=== PATIENT | female | born 1975 | race Caucasian/White ===

== ENCOUNTER 2016-12-07 20:02 | Emergency (ER) | payer OTHER ==
[2016-12-07] MEDS ORDERED: Cephalexin CAP* 500 MG PO ONE (21:31)
[2016-12-07] MEDS ORDERED: Cephalexin CAP* 500 MG ONE (21:37)
--- NOTE | 2016-12-07 22:03 | RAD ---
HISTORY: Swollen olecranon bursa COMPARISONS: None VIEWS: 4, Frontal, lateral, and oblique views of the left elbow FINDINGS: BONE DENSITY: Normal. BONES: There is no displaced fracture. JOINTS: There is no arthropathy. ALIGNMENT: There is no dislocation. SOFT TISSUES: There is soft tissue swelling over the olecranon OTHER FINDINGS: None. IMPRESSION: SOFT TISSUE SWELLING OVER THE OLECRANON CONSISTENT WITH HISTORY OF OLECRANON BURSITIS
[2016-12-07 22:24] VITALS: BP 110/68
--- NOTE | 2016-12-08 01:19 | UC ---
ayesha Mcconnell Timothy, scribed for Araceli Santoyo MD on 12/07/16 at 2124 . Upper Extremity HPI - HPI Summary HPI Summary: Robb Hamilton is a 41 yo female presenting with shooting 7/10 left elbow pain radiating down her left arm since 1600 this afternoon, accompanied by swelling. Pt states she has a Hx of similar Sx which resolved spontaneously. She denies any trauma. Present in room is her son, Kennedy. Pt is right handed. She has self- medicated with 800mg ibuprofen at 1900 tonight. Her MHx includes , thyroidectomy 2004. - History of Current Complaint Chief Complaint: UCUpperExtremity Stated Complaint: ELBOW PAIN,SWELLING Time Seen by Provider: 12/07/16 21:18 Hx Obtained From: Patient Hx Last Menstrual Period: depo ?: No Onset/Duration: Sudden Onset, Lasting Hours, Still Present Severity Initially: Moderate Severity Currently: Moderate Pain Intensity: 7 Pain Scale Used: 0-10 Numeric Location Of Pain: Is Discrete @ - left elbow, Radiates To - down left arm to hand Character: Sharp - "shooting" Aggravating Factor(s): Movement Alleviating Factor(s): Nothing Associated Signs And Symptoms: Positive: Swelling, Redness. Negative: Bruising , Fever, Weakness, Numbness/Tingling Related History: Dominant Hand Right - Allergies/Home Medications Allergies/Adverse Reactions: Allergies Allergy/AdvReac Type Severity Reaction Status Date / Time Promethazine [From Phenergan] Allergy Itching Verified 12/07/16 20:44 PMH/Surg Hx/FS Hx/Imm Hx Endocrine History Of: Reports: Thyroid Disease - 2004 Thyroidectomy Denies: Diabetes Cardiovascular History Of: Denies: Cardiac Disorders, Hypertension Respiratory History Of: Denies: COPD, Asthma GI/ History Of: Denies: Ulcer - Surgical History Surgical History: Yes Surgery Procedure, Year, and Place: 2004 Thyroidectomy - Family History Known Family History: Positive: Other - [place] Negative: Cardiac Disease - Social History Lives: With Family Alcohol Use: None Substance Use Type: None Smoking Status (MU): Never Smoked Tobacco - Immunization History Most Recent Influenza Vaccination: 2013 Most Recent Tetanus Shot: 2011 Most Recent Pneumonia Vaccination: n/a Review of Systems Constitutional: Negative Skin: Negative Eyes: Negative ENT: Negative Respiratory: Negative Cardiovascular: Negative Gastrointestinal: Negative Genitourinary: Negative Motor: Negative Neurovascular: Negative Musculoskeletal: Edema - left elbow, Other: - shooting pain from left elbow down arm Neurological: Negative Psychological: Negative All Other Systems Reviewed And Are Negative: Yes Physical Exam Triage Information Reviewed: Yes Appearance: Well-Appearing, Well-Nourished, Pain Distress Vital Signs: Initial Vital Signs Temp 100.0 F 12/07/16 20:39 Pulse 76 12/07/16 20:39 Resp 18 12/07/16 20:39 BP 107/65 12/07/16 20:39 Pulse Ox 100 12/07/16 20:39 afebrile, but temporal temp 100.0 Vital Signs Reviewed: Yes Eyes: Positive: Conjunctiva Clear. Negative: Discharge ENT: Positive: Hearing grossly normal. Negative: Muffled/hoarse voice Neck: Positive: Supple, Nontender Respiratory: Positive: Lungs clear, Normal breath sounds, No respiratory distress Cardiovascular: Positive: RRR, No Murmur, Pulses Normal, Brisk Capillary Refill Musculoskeletal: Positive: Strength Intact, ROM Limited @ - limited to 160 degrees extension, pain with extension, full flexion and no pain with flexion, Edema @ - swelling, redness at left olecranon, no bony tenderness Neurological: Positive: Alert, Muscle Tone Normal Psychological Exam: Normal Psychological: Positive: Age Appropriate Behavior Skin Exam: Normal Skin: Negative: rashes Diagnostics - Radiology L Elbow XR Xray Interpretation: Positive (See Comments) - IMPRESSION: SOFT TISSUE SWELLING OVER THE OLECRANON CONSISTENT WITH HISTORY OF OLECRANON BURSITIS Radiology Interpretation Completed By: Radiologist Re-Evaluation - Re-Evaluation First Eval Re-Evaluation Time: 22:12 Change: Unchanged Comment: Pt is informed of results of imaging study. Discussed follow up with Dr. Camacho with Pt. Upper Extremity Course/Dx - Course Course Of Treatment: Robb Hamilton is a 41 yo female presenting to [facility] with shooting left elbow pain radiating down her arm since 1600 this afternoon. She denies any trauma. Her medications have been reviewed this visit. Of note is her temp in room at 100.0 degrees fahrenheit. Pt declines narcotics, and states she will manage fever and pain with ibuprofen at home. Pt received Keflex as an antibiotic to cover for possible septic arthritis. Her left elbow XR suggested soft tissue swelling over the olecranon, consistent with a Hx of olecranon bursitis. After clinical examination and review of her imaging studies, she will be discharged home with left olecranon bursitis with appropriate instructions for close follow up with orthopedics. Pt will receive an cristopher bandage wrap and a sling. - Differential Dx/Diagnosis Differential Diagnosis/HQI/PQRI: Bursitis - olecranon, Fracture (Closed), Septic Arthritis Provider Diagnoses: left olecranon bursitis Discharge - Discharge Plan Condition: Stable Disposition: HOME Prescriptions: Cephalexin CAP* [Keflex 500 CAP*] 500 mg PO QID #40 cap Patient Education Materials: Elbow Bursitis (ED) Referrals: Kodak Camacho MD [Medical Doctor] - 2 Days [facility] [Outside] - 1 Week Additional Instructions: Please follow up with Dr. Camacho, the orthopedist, and the primary care physician provided regarding your visit to urgent care today. When you call, tell Dr. Camacho that Dr. Santoyo is concerned for olecranon bursitis or septic arthritis of your elbow. Return to urgent care or the emergency department with any new or recurring symptoms. The documentation as recorded by the ayesha de la o Timothy accurately reflects the service I personally performed and the decisions made by , Araceli Santoyo MD.
== END 2016-12-07 22:24 | disposition home or self-care (01) ==
LOC: UCEAST 20:02
DX: M70.22 Olecranon bursitis, left elbow (principal)
CPT/HCPCS: 99212; A9270-GY; G0463

== ENCOUNTER 2018-01-17 07:25 | Emergency (ER) | payer OTHER ==
[2018-01-17] MEDS ORDERED: oxyCODONE/Acetamin 5/325 MG* TAB PO ONE (07:58)
[2018-01-17] MEDS ORDERED: predniSONE TAB* 20 MG PO ONE (07:58)
[2018-01-17] MEDS ORDERED: Ketorolac INJ* 60 MG/2 ML VIAL IM ONE (07:58)
[2018-01-17] MEDS ORDERED: Lidocaine PATCH 5%* 1 PATCH TRANSDERM ONE (09:53)
[2018-01-17 10:56] VITALS: BP 119/71
--- NOTE | 2018-01-17 18:52 | ED ---
Hsusain Mcconnell Angela, scribed for Mundo Daugherty MD on 01/17/18 at 0751 . Back Pain - HPI Summary HPI Summary: This pt is a 42 y/o female presenting to [facility] c/o low back pain since last night. Pt reports she was coming down the stairs and when she got to the bottom she had sudden onset of low back pain. She notes her "legs just gave out" and dropped on her left knee and on her left side. Denies hitting her back. Denies head strike or LOC. Pt reports she does not have the strength to move her legs. Pt states her low back pain radiates down both legs equally. Pt has been laying in bed since last night. She took Aleve last night with no relief. Her pain is alleviated with rest and is aggravated with movement. Denies urinary or bowel incontinence, abd pain, fever, chills. Pt currently rates her pain 8 out of 10 in severity. Denies any back surgeries. Denies drug use. Pt had epidural approximately 4 years ago. PMHx includes L5-S1 degenerative disc disease. Pt had a back MRI last week at [facility] which showed worsening degenerative disc disease in the past 6 months. She also had a kidneys can 2 weeks ago for trace blood in urine, which resulted normal. She is currently on Levothyroxine for thyroid disease, gabapentin (prescribed by her PCP), vitamin D supplements. Pt has been taking Gabapentin for 1 month now. - History of Current Complaint Chief Complaint: EDBackInjuryPain Stated Complaint: BACK PAIN Hx Obtained From: Patient Hx Last Menstrual Period: depo Onset/Duration: Lasting Hours, Still Present Onset/Duration: Started Hours Ago, Still Present Timing: Lasting Hours Back Pain Location: Is Discrete @ - low back pain, Radiates To - bilateral legs Severity Currently: Severe Pain Intensity: 8 Pain Scale Used: 0-10 Numeric Aggravating Symptom(s): Movement Alleviating Symptom(s): Rest Associated Signs And Symptoms: Positive: Weakness. Negative: Fever, Numbness, Tingling, Abdominal Pain, Bladder Incontinence, Bowel Incontinence - Allergies/Home Medications Allergies/Adverse Reactions: Allergies Allergy/AdvReac Type Severity Reaction Status Date / Time promethazine Allergy See Comment Verified 01/17/18 07:34 Home Medications: Home Medications Gabapentin CAP(*) [Neurontin 100 mg CAP(*)] 100 mg PO TID 01/17/18 [History Confirmed 01/17/18] Levothyroxine TAB* [Synthroid TAB*] 88 mcg PO DAILY 01/17/18 [History Confirmed 01/17/18] PMH/Surg Hx/FS Hx/Imm Hx Endocrine/Hematology History: Reports: Hx Thyroid Disease - 2004 Thyroidectomy Denies: Hx Diabetes Cardiovascular History: Denies: Hx Hypertension Respiratory History: Denies: Hx Asthma, Hx Chronic Obstructive Pulmonary Disease (COPD) GI History: Denies: Hx Cirrhosis, Hx Ulcer Musculoskeletal History: Denies: Hx Scoliosis Neurological History: Denies: Other Neuro Impairments/Disorders - Surgical History Surgery Procedure, Year, and Place: 2004 Thyroidectomy Infectious Disease History: No Infectious Disease History: Denies: Hx Hepatitis, Hx Human Immunodeficiency Virus (HIV), Traveled Outside the [place] in Last 30 Days - Family History Known Family History: Positive: Other - [place] Negative: Cardiac Disease - Social History Alcohol Use: None Substance Use Type: Reports: None Smoking Status (MU): Never Smoked Tobacco Review of Systems Negative: Fever, Chills Negative: Erythema Negative: Sore Throat Negative: Chest Pain Negative: Shortness Of Breath, Cough Negative: Abdominal Pain, Vomiting, Nausea Negative: dysuria, hematuria, incontinence - urinary or bowel Musculoskeletal: Other - back pain Negative: Myalgia, Edema Negative: Rash Neurological: Other - NEG: dizziness Positive: Weakness - in bilateral LE All Other Systems Reviewed And Are Negative: Yes Physical Exam - Summary Physical Exam Summary: Exam is limited by pain. Constitutional: Well-developed, Well-nourished, Alert. (-) Distressed Skin: Warm, Dry HENT: Normocephalic; Atraumatic Eyes: Conjunctiva normal Neck: Musculoskeletal ROM normal neck. (-) JVD, (-) Stridor, (-) Tracheal deviation Cardio: Rhythm regular, rate normal, Heart sounds normal; Intact distal pulses; The pedal pulses are 2+ and symmetric. Radial pulses are 2+ and symmetric. (-) Murmur Pulmonary/Chest wall: Effort normal. (-) Respiratory distress, (-) Wheezes, (-) Rales Abd: Soft, (-) Tenderness, (-) Distension, (-) Guarding, (-) Rebound Musculoskeletal: (-) Edema. Lower extremity movement strength is symmetric. Lymph: (-) Cervical adenopathy Neuro: Alert, Oriented x3. Distal sensation is intact. Patellar tendon and Achilles tendon reflex is 2+ bilaterally. Psych: Mood and affect Normal Triage Information Reviewed: Yes Vital Signs On Initial Exam: Initial Vitals Temp Pulse Resp BP Pulse Ox 97.7 F 77 17 120/62 98 01/17/18 07:29 01/17/18 07:29 01/17/18 07:29 01/17/18 07:29 01/17/18 07:29 Vital Signs Reviewed: Yes Diagnostics - Vital Signs Vital Signs Temp Pulse Resp BP Pulse Ox 01/17/18 07:29 97.7 F 77 17 120/62 98 - Laboratory Lab Statement: Any lab studies that have been ordered have been reviewed, and results considered in the medical decision making process. - Additional Comments Diagnostic Additional Comments: MRI Lumbar Spine (from [facility]) Findings: For counting purposes, the lower most segmented vertebral body is considered L5. The conus medullaris terminates at the L1 level and appears grossly normal. At T11-12 intervertebral levels are imaged in the sagittal plane only and appear grossly unremarkable. The L2-L3, L3-L4, and L4-L5 levels appear grossly unremarkable. At the L5-S1 level, there is moderate disc space narrowing with grade 1 retrolisthesis of L5 on S1 and mild facet osteoarthropathy. There is mild right- sided and moderate left -sided neural foraminal narrowing without definite nerve root impingement. IMPRESSION: Minor degenerative changes are seen at the L5-S1 level. Dr. Daugherty has reviewed this radiology report. Re-Evaluation - Re-Evaluation First Eval Re-Evaluation Time: 09:50 Change: Improved Comment: Pt is feeling better. Her pain is now down to a 6 out of 10 in severity. Second Eval Re-Evaluation Time: 10:32 Comment: Pt will be discharged home with follow up from Dr. Adler. Back Pain Course/Dx - Course Assessment/Plan: Pt is a 42 y/o female, with hx of degenerative disc disease, who presents with low back pain since last night. Pt reports she was coming down the stairs and when she got to the bottom she had sudden onset of low back pain. She notes her "legs just gave out" and dropped on her left knee and on her left side. Denies hitting her back. Denies head strike or LOC. Pt reports she does not have the strength to move her legs. Pt states her low back pain radiates down both legs equally. In the ED course the pt was given Toradol, Percocet, prednisone, lidocaine patch. MRI of the lumbar spine records were obtained from [facility]. MRI shows minor degenerative changes are seen at the L5-S1 level. Pt will be discharged home with follow up from Dr. Adler, neurosurgeon, in 2-3 days. She was given prescriptions for lidocaine patch, naproxen, Percocet, and prednisone. Pt was given instructions to return to the ED for any worsening symptoms. - Diagnoses Provider Diagnoses: Degenerative disc disease, Low back pain Discharge - Sign-Out/Discharge Documenting (check all that apply): Discharge/Admit/Transfer - Discharge - Discharge Plan Condition: Stable Disposition: HOME Prescriptions: Lidocaine PATCH 5%* [Lidoderm 5% Patch*] 1 patch TRANSDERM DAILY #30 patch Naproxen TAB* [Naprosyn 250 mg TAB*] 500 mg PO Q8H PRN #30 tab PRN Reason: Pain - Moderate To Severe oxyCODONE/Acetam5/325MG PREPAK [Percocet 5/325 TAB*] 1 - 2 tab PO Q6H #20 tab MDD 8 predniSONE TAB* [Deltasone TAB*] 50 mg PO DAILY #4 tab Patient Education Materials: Acute Low Back Pain (ED), Degenerative Disc Disease (ED) Forms: *Work Release Referrals: [facility] [Outside] Natalee Elizabeth [Primary Care Provider] - Chas Adler MD [Medical Doctor] - 2 Days (in 2-3 days.) Additional Instructions: Follow up with Dr. Adler, neurosurgeon, in 2-3 days. Establish a primary care provider through [facility] and follow up. RETURN TO THE EMERGENCY DEPARTMENT FOR CHANGING OR WORSENING SYMPTOMS. The documentation as recorded by the Hussain de la o Angela accurately reflects the service I personally performed and the decisions made by Dat matt Jerry, MD.
[2018-01-17] MEDS ORDERED: Lidocaine Patch REMOVE* 1 NOTE MISC SCH (21:00)
== END 2018-01-17 10:54 | disposition home or self-care (01) ==
LOC: ED 07:25
DX: M54.5 Low back pain (principal); M51.37 Other intervertebral disc degeneration, lumbosacral region; M62.81 Muscle weakness (generalized); E07.9 Disorder of thyroid, unspecified; Z80.9 Family history of malignant neoplasm, unspecified
CPT/HCPCS: 96372; 99283; A9270-GY; J1885; J7512

== ENCOUNTER 2018-03-15 08:02 | Emergency (ER) | payer OTHER ==
--- NOTE | 2018-03-15 08:18 | UC ---
General HPI - HPI Summary HPI Summary: c/o mid chest pain that started approx 0730 this morning. She states that the pain radiates up her R side of neck and jaw. Describes the pain as pressure and intermittent. Denies any hx of this pain in the past. Ms. Hamilton has just dropped off children, and was on her way to work, when pain started. Max 8/10. Without sob perse. Might be worse with deep inspiration, but not resolved without inspiration. Some nausea, no vomit. Pain mid right sternal, radiates to R jaw. No recent illness, no cough, no recent fever / chills. No h/a. No loc. No focal weakness. Takes depoprovera, lmp 2 yrs ago. - History of Current Complaint Chief Complaint: UCChestPain Stated Complaint: CHEST/JAW PAIN Time Seen by Provider: 03/15/18 08:04 Hx Obtained From: Patient Hx Last Menstrual Period: pt on depo and states not getting a menses Pain Intensity: 8 - Allergy/Home Medications Allergies/Adverse Reactions: Allergies Allergy/AdvReac Type Severity Reaction Status Date / Time promethazine AdvReac See Comment Verified 03/15/18 08:12 PMH/Surg Hx/FS Hx/Imm Hx Previously Healthy: Yes Endocrine History: Thyroid Disease - takes thyroid med - Surgical History Surgical History: Yes Surgery Procedure, Year, and Place: 2004 Thyroidectomy - Family History Known Family History: Positive: Other - [place] Negative: Cardiac Disease - Social History Occupation: Employed Full-time Alcohol Use: None Substance Use Type: None Smoking Status (MU): Never Smoked Tobacco - Immunization History Most Recent Influenza Vaccination: 2012 Most Recent Tetanus Shot: 2011 Most Recent Pneumonia Vaccination: n/a Review of Systems Constitutional: Negative Skin: Negative Eyes: Negative ENT: Negative Respiratory: Other - see hpi Cardiovascular: Chest Pain Gastrointestinal: Other - see hpi Genitourinary: Negative Motor: Negative Neurovascular: Negative Musculoskeletal: Negative Neurological: Negative Psychological: Negative Is Patient Immunocompromised?: No All Other Systems Reviewed And Are Negative: Yes Physical Exam Triage Information Reviewed: Yes Appearance: Well-Nourished - No acute distress, but seems uncomfortable Vital Signs: Initial Vital Signs Temp 98.7 F 03/15/18 08:06 Pulse 73 03/15/18 08:06 Resp 18 03/15/18 08:06 BP 119/66 03/15/18 08:06 Pulse Ox 99 03/15/18 08:06 Vital Signs Reviewed: Yes Eye Exam: Normal ENT Exam: Normal Neck exam: Other - supple. Without point tenderness, or gross adenopathy Respiratory Exam: Other - BS clear and equal bilat Respiratory: Positive: Lungs clear, Normal breath sounds, No respiratory distress, No accessory muscle use Cardiovascular Exam: Normal Cardiovascular: Positive: RRR, No Murmur, Pulses Normal, Brisk Capillary Refill Abdominal Exam: Normal Abdomen Description: Positive: Nontender Musculoskeletal Exam: Normal - moves x 4 exts, Other - + bilat early venous insff changes. No unilateral gross edema, nor subj c/o leg pain. Neurological Exam: Normal - grossly nonfocal Psychological Exam: Normal - conversing easily and appropriately Skin Exam: Normal - nondiaphoretic. no visible or reported rash. Distal ext warm to touch. Course/Dx - Course Course Of Treatment: EMS notified. ASA,Oxygen, Saline lock applied. Pain 8/10 -> ntg x 1s 04 with NS bolus. EKG sr at 75 bpm, no old for comp. Dff dx includes albeit not limited to cardiac, pulmonological (incl embolism), musc / skel, infectious, endocrinol,. Ms. Hamilton agrees to go to ED, agrees to EMS transfer (I recommend EMS transfer d/t acute chest pain). Questions as posed answered to the best of my ability. 09:05 called ED, no MD/HUMAN RESOURCES DIRECTOR/PA available, I spoke with RN Cody Charge nurse. - Differential Dx - Multi-Symptom Provider Diagnoses: Chest pain. Discharge - Sign-Out/Discharge Documenting (check all that apply): Patient Departure - Discharge Plan Condition: Guarded Disposition: TRANS HIGHER LVL OF CARE FAC Patient Education Materials: Chest Pain (ED) Referrals: Natalee Elizabeth [Primary Care Provider] - - Billing Disposition and Condition Condition: GUARDED Disposition: Trans Higher Lvl of Care Fac
[2018-03-15] MEDS ORDERED: Aspirin 81 mg CHEW TAB* 81 MG TAB.CHEW PO ONE (08:31)
[2018-03-15] MEDS ORDERED: Nitroglycerin TAB 0.4 MG* 0.4 MG TAB SL ONE (08:48)
[2018-03-15 08:57] VITALS: BP 112/65
[2018-03-15] MEDS ORDERED: NS 0.9% 1000 ML* 1,000 ML IV ONE (08:59)
== END 2018-03-15 09:14 | disposition short-term general hospital (02) ==
LOC: UCEAST 08:02
DX: R07.89 Other chest pain (principal); E07.9 Disorder of thyroid, unspecified; Z88.8 Allergy status to other drugs, medicaments and biological substances
CPT/HCPCS: 93005; 96360; 99214; A9270-GY; G0463

== ENCOUNTER 2018-03-15 09:46 | Emergency (ER) | payer OTHER ==
[2018-03-15 10:23] LABS: ABS Basophils 0 10^3/ul (0-0.2); ABS Eosinophils 0 10^3/ul (0-0.6); ABS Lymphocytes 2.3 10^3/ul (1.0-4.8); ABS Monocytes 0.5 10^3/ul (0-0.8); ABS Neutrophils 4.8 10^3/ul (1.5-7.7); ABS Nucleated RBC 0 10^3/ul; Eosinophil % 0.4 % (0-6); Hematocrit 41 % (35-47); Lymphocyte % 29.9 % (25-47); Mean Corpuscular HGB Conc 34 g/dl (31-36); Mean Corpuscular Hemoglobin 32 pg (27-31); Mean Corpuscular Volume 94 fL (80-97); Mean Platelet Volume 7.5 um3 (7.4-10.4); Nucleated Red Blood Cells % 0.1; Platelet Count 299 10^3/ul (150-450); Red Blood Count 4.33 10^6/ul (4.00-5.40); Red Cell Distribution Width 13 % (10.5-15); White Blood Count 7.7 10^3/ul (3.5-10.8)
--- NOTE | 2018-03-15 10:27 | ED ---
HPI Chest Pain - HPI Summary HPI Summary: The pt. is a 43 y/o female BIBA by ambulance from [facility] c/o of sharp and tight CP at the sternum that radiates to the right jaw and neck. The pain began suddenly this morning when she was seated in her truck. It is rated 8/10 at the time of onset and is now 6/10 in severity. EMS gave her 1 g NTG and 32g ASA p/o en route. The CP not aggravated by movement. She also notes mild nausea and dizziness but denies TAO, SOB and diaphoresis but denies LE pain. Her last longest travel was a 4-5 hr flight from [place] 3 days ago (03/12/2018). This is scribe Mitra Rg documenting for attending Dr. Aric MD. - History of Current Complaint Chief Complaint: EDChestPainROMI Hx Obtained From: Patient, EMS Hx Last Menstrual Period: pt on depo and states not getting a menses Onset/Duration: Started Hours Ago - Today morning after dropping off son to school. Timing: Constant, Lasting Hours Initial Severity: Severe Current Severity: Moderate Pain Intensity: 6 Pain Scale Used: 0-10 Numeric Chest Pain Location: Mid Sternal Chest Pain Radiates: Yes Chest Pain Radiates To:: Jaw - R Jaw, Neck Character: Sharp/Stabbing, Tightness Aggravating Factor(s): Nothing Alleviating Factor(s): Other: - ASA and NTG administered by EMS Associated Signs and Symptoms: Positive: Chest Pain, Dizziness, Nausea - Mild. Negative: Headaches, Shortness of Breath, Diaphoresis - Allergy/Home Medications Allergies/Adverse Reactions: Allergies Allergy/AdvReac Type Severity Reaction Status Date / Time No Known Allergies Allergy Verified 03/15/18 09:50 PMH/Surg Hx/FS Hx/Imm Hx Previously Healthy: No Endocrine/Hematology History: Reports: Hx Thyroid Disease - 2004 Thyroidectomy Denies: Hx Diabetes Cardiovascular History: Denies: Hx Hypertension Respiratory History: Denies: Hx Asthma, Hx Chronic Obstructive Pulmonary Disease (COPD) GI History: Denies: Hx Cirrhosis, Hx Ulcer Musculoskeletal History: Denies: Hx Scoliosis Neurological History: Denies: Other Neuro Impairments/Disorders - Surgical History Surgery Procedure, Year, and Place: 2004 Thyroidectomy Infectious Disease History: No Infectious Disease History: Denies: Hx Hepatitis, Hx Human Immunodeficiency Virus (HIV), Traveled Outside the [place] in Last 30 Days - Family History Known Family History: Positive: Other - [place] Negative: Cardiac Disease - Social History Occupation: Employed Full-time Lives: With Family Alcohol Use: None Hx Substance Use: No Substance Use Type: Reports: None Hx Tobacco Use: No Smoking Status (MU): Never Smoked Tobacco Review of Systems Positive: Other - Positive: Diziness . Negative: Skin Diaphoresis ENT: Other - Positive: Neck pain, Jaw pain Positive: Chest Pain Negative: Shortness Of Breath Positive: Nausea - Mild Negative: Headache All Other Systems Reviewed And Are Negative: Yes Physical Exam - Summary Physical Exam Summary: VITAL SIGNS: Reviewed. GENERAL: Patient is a well-developed and nourished female who is lying comfortable in the stretcher. Patient is not in any acute respiratory distress. HEAD AND FACE: No signs of trauma. No ecchymosis, hematomas or skull depressions. No sinus tenderness. EYES: PERRLA, EOMI x 2, No injected conjunctiva, no nystagmus. EARS: Hearing grossly intact. Ear canals and tympanic membranes are within normal limits. MOUTH: Oropharynx within normal limits. NECK: Supple, trachea is midline, no adenopathy, no JVD, no carotid bruit, no c- spine tenderness, neck with full ROM. CHEST: Symmetric, no tenderness at palpation LUNGS: Clear to auscultation bilaterally. No wheezing or crackles. CVS: Regular rate and rhythm, S1 and S2 present, no murmurs or gallops appreciated. ABDOMEN: Soft, non-tender. No signs of distention. No rebound no guarding, and no masses palpated. Bowel sounds are normal. EXTREMITIES: FROM in all major joints, no edema, no cyanosis or clubbing. NEURO: Alert and oriented x 3. No acute neurological deficits. Speech is normal and follows commands. SKIN: Dry and warm Triage Information Reviewed: Yes Vital Signs On Initial Exam: Initial Vitals Temp Pulse Resp BP Pulse Ox 97.7 F 62 12 110/71 99 03/15/18 09:46 03/15/18 09:46 03/15/18 09:46 03/15/18 09:46 03/15/18 09:46 Vital Signs Reviewed: Yes Diagnostics - Vital Signs Vital Signs Temp Pulse Resp BP Pulse Ox 03/15/18 09:53 62 03/15/18 09:46 97.7 F 62 12 110/71 99 - Laboratory Result Diagrams: 03/15/18 10:05 03/15/18 10:05 Lab Statement: Any lab studies that have been ordered have been reviewed, and results considered in the medical decision making process. Chest Pain Course/Dx - Course Assessment/Plan: This patient is a 43-year-old female who presents to the emergency room via ambulance with a chief complaint of having chest pain. The patient reports that is a sharp chest pain. Test results without any significant abnormality. Patient had 2 troponins 4 hours apart and they and negative. The patient was given IV fluids and Toradol and his symptoms improved. Before the patient arrived to the emergency department she was given nitroglycerin and aspirin without any relief of symptoms. With the Toradol the patient is feeling better. D-dimer is negative therefore I do not suspect that the patient has a PE. I discussed all the findings and test results with the patient. Patient was instructed to return to the emergency room immediately if any of the symptoms return or worsens. Plan of care was discussed with the patient and understands and agrees. All questions were answered at patient satisfaction. There were no further complaints or concerns. Lung exam before discharge: CTA B/L. Good air exchange. No wheezing or crackles heard. CVS: S1 and S2 present. No murmurs appreciated. Patient is alert and oriented x 3. Patient is hemodynamically stable. Patient will be discharged home with follow up PCP in the next 2-3 days - Chest Pain Differential Diagnosis/HQI/PQRI: Acute PA, ACS, Angina, CHF, Chest Wall, GI Disease, Lower Respiratory Infection, Other: - Atypical Chest Pain - Diagnoses Provider Diagnoses: Atypical chest pain Discharge - Sign-Out/Discharge Documenting (check all that apply): Patient Departure - DC - Discharge Plan Condition: Stable Disposition: HOME Patient Education Materials: Chest Pain (ED) Referrals: Natalee Elizabeth [Primary Care Provider] - 3 Days Additional Instructions: RETURN TO THE ED FOR ANY WORSENING OR NEW SYMPTOMS. - Billing Disposition and Condition Condition: STABLE Disposition: Home Attestation Statement Scribe Attestation: This is jaylyn Rg documenting for attending Dr. Aric MD. User Type: Provider with Scribe Provider Attestation: The documentation recorded by the scribe accurately reflects the service I personally performed and the decisions made by me.
[2018-03-15 10:38] LABS: INR 0.93 (0.77-1.02)
[2018-03-15 10:48] LABS: EGFR Non-African American 69.8 (>60)
--- NOTE | 2018-03-15 11:07 | RAD ---
INDICATION: Chest pain COMPARISON: Most recent comparison chest x-rays dated June 16, 2007 TECHNIQUE: Single AP portable view of the chest was obtained. FINDINGS: Image quality is compromised due to the relative inferiority of a portable chest x-ray. The heart and mediastinum exhibit normal size and contour. The lungs are grossly clear. There is no evidence of a large pleural effusion. Visualized bones are normal for the patient's age. IMPRESSION: No radiographic evidence for acute cardiopulmonary abnormality on this portable chest x-ray.
[2018-03-15] MEDS: Ketorolac INJ* 30 MG/ML 1 ML VIAL IV PUSH ONE ×2 (12:39→12:49)
[2018-03-15 12:43] LABS: Urine Appearance Cloudy; Urine Blood 2+ (Negative); Urine Color Yellow; Urine Ketones Negative (Negative); Urine Protein Negative (Negative); Urine Red Blood Cell 3+(>10/hpf) (Absent); Urine Specific Gravity 1.021 (1.010-1.030); Urine Urobilinogen Negative (Negative); Urine White Blood Cell Trace(0-5/hpf) (Absent)
[2018-03-15] MEDS ORDERED: Ketorolac INJ* 30 MG/ML 1 ML VIAL ONE (12:48)
[2018-03-15 13:56] VITALS: BP 108/72
== END 2018-03-15 13:55 | disposition home or self-care (01) ==
LOC: ED 09:46
DX: R07.89 Other chest pain (principal); R11.0 Nausea; R42 Dizziness and giddiness
CPT/HCPCS: 36415; 71045; 80053; 81003; 81015; 82550; 82553; 83605; 83735; 83880; 84443; 84484; 85025; 85379; 85610; 85730; 87086; 93005; 96374; 99283; J1885